=== PATIENT | female | born 1930 | race African-American/Black ===

== ENCOUNTER 2016-05-26 03:34 | Emergency (ER) | payer MEDICARE, MEDICAID ==
[~2016-05-26] VITALS: Ht 170.2 cm; Wt 77.1 kg
[~2016-05-26 03:34] MED LIST: UNOBMED
[2016-05-26 03:45] VITALS: BP 150/79
--- NOTE | 2016-05-26 04:01 | Emergency Room Report ---
History of Present Illness General Chief Complaint: Multiple Trauma/Fall Source: Patient, Family Member Present Illness HPI Patient had a fall this morning about one hour prior to arrival Patient's daughter is here states that patient was walking back from the restroom in the dark when she sustained a fall Sounds to be mechanical nature Patient had a hematoma to the top of the head Denies any chest pain or shortness of breath denies any focal weakness Denies any difficulty ambulating Pain to the scalp area was 3/10 Denies any visual changes denies any neck pain Denies any lightheadedness or syncopal episodes Allergies: Coded Allergies: No Known Allergies (Unverified , 06/30/14) Patient History Past Medical History: see triage record Pertinent Family History: none Reviewed Nursing Documentation: PMH: Agreed, PSxH: Agreed Nursing Documentation-PMH Hx Hypertension: Yes Hx Diabetes: Yes 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 - alzeihmers Review of Systems All Other Systems: negative except mentioned in HPI Physical Exam Vital Signs Date Time Temp Pulse Resp B/P Pulse Ox O2 Delivery O2 Flow Rate FiO2 05/26/16 03:38 98.1 70 16 154/77 100 Room Air Sp02 EP Interpretation: reviewed, normal General Appearance: well appearing, no apparent distress Head: other - 1 x 1 cm hematoma left parietal region Eyes: bilateral eye EOMI, bilateral eye PERRL ENT: hearing grossly normal, normal pharynx, TMs + canals normal, uvula midline Neck: full range of motion, supple, no meningismus, no bony tend Respiratory: lungs clear, normal breath sounds, no rhonchi, no respiratory distress, no retraction, no accessory muscle use Cardiovascular #1: normal peripheral pulses, regular rate, rhythm, no edema, no gallop, no JVD, no murmur Gastrointestinal: normal bowel sounds, non tender, soft, no mass, no organomegaly, non-distended, no guarding, no hernia, no pulsatile mass, no rebound Genitourinary: no CVA tenderness Musculoskeletal: normal inspection Neurologic: oriented x3, responsive, 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 as tested, motor strength/ tone normal, sensory intact Psychiatric: mood/affect normal Skin: warm/dry, palpation normal Lymphatic: normal inspection, no adenopathy Medical Decision Making Diagnostic Impression: Primary Impression: Head injury ER Course Patient presents with a sounds to be fairly mechanical nature fall However given her age baseline blood work was also obtained and CT head did not show any obvious acute disease Patient's blood work at baseline levels patient has rested comfortably and remains hemodynamically stable And the patient is able to have close outpatient followup Labs Test 05/26/16 04:20 White Blood Count 7.7 K/UL (4.8-10.8) Red Blood Count 4.00 M/UL (4.20-5.40) Hemoglobin 10.4 G/DL (12.0-16.0) Hematocrit 33.2 % (37.0-47.0) Mean Corpuscular Volume 83 FL (80-99) Mean Corpuscular Hemoglobin 25.9 PG (27.0-31.0) Mean Corpuscular Hemoglobin Concent 31.3 G/DL (32.0-36.0) Red Cell Distribution Width 15.3 % (11.6-14.8) Platelet Count 209 K/UL (150-450) Mean Platelet Volume 7.7 FL (6.5-10.1) Neutrophils (%) (Auto) 68.6 % (45.0-75.0) Lymphocytes (%) (Auto) 20.5 % (20.0-45.0) Monocytes (%) (Auto) 8.5 % (1.0-10.0) Eosinophils (%) (Auto) 1.8 % (0.0-3.0) Basophils (%) (Auto) 0.6 % (0.0-2.0) Sodium Level 141 mEQ/L (135-145) Potassium Level 4.5 mEQ/L (3.4-4.9) Chloride Level 102 mEQ/L (98-107) Carbon Dioxide Level 27 mEQ/L (20-30) Anion Gap 12 (5-15) Blood Urea Nitrogen 28 mg/dL (7-23) Creatinine 1.2 mg/dL (0.5-0.9) Estimat Glomerular Filtration Rate mL/min (>60) Glucose Level 178 mg/dL (74-106) Calcium Level 9.5 mg/dL (8.6-10.2) Rhythm Strip Diag. Results EP Interpretation: yes Rate: 65 Rhythm: NSR, no PVC's, no ectopy Chest X-Ray Diagnostic Results EP Interpretation: Yes Findings: no consolidation, no effusion, no pneumothorax, other - Nonspecific markings right lower lobe no obvious acute pathology Number of Views: 1 CT/MRI/US Diagnostic Results CT/MRI/US Diagnostic Results : Impression CT head: No acute disease Last Vital Signs Date Time Temp Pulse Resp B/P Pulse Ox O2 Delivery O2 Flow Rate FiO2 05/26/16 03:38 98.1 70 16 154/77 100 Room Air Status: improved Disposition: HOME, SELF-CARE Condition: Improved Referrals: [facility] (PCP) Additional Instructions: Patient is provided with the discharge instructions notified to follow up with primary doctor in the next 2-3 days otherwise return to the er with any worsening symptoms. VERA HODGES D.O. May 26, 2016 04:01
[2016-05-26 04:31] LABS: BASOPHILS % (AUTO) 0.6 % (0.0-2.0); EOSINOPHILS % (AUTO) 1.8 % (0.0-3.0); LYMPHOCYTES % (AUTO) 20.5 % (20.0-45.0); MEAN CORPUSCULAR HEMOGLOBIN 25.9 PG (27.0-31.0); MEAN CORPUSCULAR HGB CONC 31.3 G/DL (32.0-36.0); MEAN CORPUSCULAR VOLUME 83 FL (80-99); MEAN PLATELET VOLUME 7.7 FL (6.5-10.1); MONOCYTES % (AUTO) 8.5 % (1.0-10.0); NEUTROPHILS % (AUTO) 68.6 % (45.0-75.0); PLATELET COUNT 209 K/UL (150-450); RED CELL DISTRIBUTION WIDTH 15.3 % (11.6-14.8); WHITE BLOOD COUNT 7.7 K/UL (4.8-10.8)
[2016-05-26 04:46] LABS: ANION GAP 12 (5-15); CALCIUM 9.5 mg/dL (8.6-10.2); CARBON DIOXIDE 27 mEQ/L (20-30); CHLORIDE 102 mEQ/L (98-107); CREATININE 1.2 mg/dL (0.5-0.9); HEMOLYSIS 35; POTASSIUM 4.5 mEQ/L (3.4-4.9); SODIUM 141 mEQ/L (135-145)
[2016-05-26 05:10] VITALS: BP 146/80
--- NOTE | 2016-05-26 08:39 | Diagnostic Imaging Report ---
Indications: , Head trauma, pain Technique: Continuous helical CT imaging of the brain was performed with automatic exposure control on a Siemens sensation [address] scanner. Axial and coronal images were reconstructed at 5 mm slice thickness and interval. CTDI volume(s): 70 mGy Total DLP: 1551 mGy-cm Findings: Comparison: 06/30/2014 Motion artifact degrades images. 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 No evidence of mass or hemorrhage, other attenuation abnormality, mass effect, midline shift, hydrocephalus or increased intracranial pressure. Bone window images remain otherwise unremarkable. Visualized paranasal sinuses and mastoid air cells remain clear. IMPRESSION: No evidence of acute injury or other acute intracranial pathology, unchanged Stable chronic changes as described. This correlates with [employer] preliminary report. The CT scanner at [facility] is accredited by the [employer] and the scans are performed using protocols designed to limit radiation exposure to as low as reasonably achievable to attain images of sufficient resolution adequate for diagnostic evaluation.
--- NOTE | 2016-05-26 10:33 | Diagnostic Imaging Report ---
Indications: Chest pain Technique: Portable AP chest Findings: Comparison: 06/30/2014 Inspiratory effort has decreased. Bronchovascular markings have increased in both lung bases. Cardiac silhouette appears to have increased in size. Pulmonary vasculature within normal limits. No pleural abnormality. Aortic arch calcification, thoracic vertebral osteophytes again noted. IMPRESSION: Interval changes described most likely due to decreased inspiration. Upright PA and lateral chest radiographs with better inspiratory effort and optimal technique recommended for more complete evaluation. Stable chronic changes as described
--- NOTE | 2016-06-14 14:18 | Cardiology Report ---
APPROVED REPORT EKG Measurement Heart [id number] Normal sinus rhythm Voltage criteria for left ventricular hypertrophy Cannot rule out Septal infarct, age undetermined Abnormal ECG
== END 2016-05-26 05:10 | disposition home or self-care (01) ==
LOC: EMR 03:50
DX: S00.03XA Contusion of scalp, initial encounter (principal); W19.XXXA Unspecified fall, initial encounter; Y92.012 Bathroom of single-family (private) house as the place of occurrence of the external cause; I10 Essential (primary) hypertension; E11.9 Type 2 diabetes mellitus without complications; G30.9 Alzheimer's disease, unspecified; F02.80 Dementia in other diseases classified elsewhere, unspecified severity, without behavioral disturbance, psychotic disturbance, mood disturbance, and anxiety
CPT/HCPCS: 36415; 70450; 71010; 80048; 85025; 93005; 99284

== ENCOUNTER 2016-07-10 15:10 | Emergency (ER) | payer MEDICARE, MEDICAID ==
[~2016-07-10] VITALS: Ht 170.2 cm; Wt 77.1 kg
--- NOTE | 2016-07-10 15:56 | Emergency Room Report ---
History of Present Illness General Chief Complaint: General Complaint Source: Family Member (JET LANCASTER) Source: Patient, Family Member (VERA HODGES D.O.) Present Illness HPI Patient complains of general weakness for 2-1/2 days. Associated symptoms include decreased appetite, abdominal pain, fatigue, chest pain and shortness of breath, and increased sleepiness. No provoking relieving factors. Patient is poor historian. Patient is accompanied by daughter. (JET LANCASTER) HPI Please refer to the initial note for the initial history Patient was also seen and evaluated by myself And the care was taken over by myself Patient is here with family Essentially report general weakness, patient also complaining of left flank discomfort Family here denies any fall or syncope There was no obvious documented fever Patient initially appeared anxious on my evaluation However the family reports of the patient is afraid of people and likely having anxiety secondary to that He also reported the patient is due for her medications (VERA HODGES D.O.) Allergies: Coded Allergies: No Known Allergies (Unverified , 06/30/14) Patient History Now: No (JET LANCASTER) Past Medical History: see triage record Pertinent Family History: none Reviewed Nursing Documentation: PMH: Agreed, PSxH: Agreed (VERA HODGES D.O.) Nursing Documentation-PMH Past Medical History: No History, Except For Hx Hypertension: Yes Hx Diabetes: Yes Hx Cancer: Yes - left breast mastectomy Hx Gastrointestinal Problems: Yes - gerd Hx Neurological Problems: Yes - alzeihmrai (JET LANCASTER) Review of Systems All Other Systems: negative except mentioned in HPI (VERA HODGES D.O.) Physical Exam Vital Signs Date Time Temp Pulse Resp B/P Pulse Ox O2 Delivery O2 Flow Rate FiO2 07/10/16 15:23 98.8 88 16 129/57 100 Room Air (JET LANCASTER.ABeto) Pulse ox is 98% on room air which is interpreted as normal Sp02 EP Interpretation: reviewed, normal General Appearance: well appearing, no apparent distress Head: normocephalic, atraumatic Eyes: bilateral eye EOMI, bilateral eye PERRL ENT: normal pharynx, no angioedema Neck: full range of motion, supple Respiratory: lungs clear, normal breath sounds Cardiovascular #1: regular rate, rhythm Gastrointestinal: non tender, soft, no mass Genitourinary: no CVA tenderness Musculoskeletal: normal inspection Neurologic: alert, responsive Skin: no rash, other - Patient's left arm does appear edematous compared to the right Lymphatic: no adenopathy (VERA HODGES D.O.) Medical Decision Making PA Attestation Dr. Hodges is my supervising physician with whom patient management has been discussed with. (JET LANCASTER) Diagnostic Impression: Primary Impression: Pyelonephritis ER Course care of this patient was transferred to (JET LANCASTER) ER Course Given the patient's history examined the presentation multiple differentials are considered Initially on evaluation it was noted that the patient had increased edema of the left upper arm Therefore ultrasound was obtained However speaking to the patient's daughter she reports that her arm has been like that for several years and has had previous workup Patient's urine sample does show positive for bacteria the patient's white blood cell count and hemoglobin otherwise at baseline levels Chest x-ray was normal Patient continues to be hemodynamically stable I did have a discussion with family regarding further inpatient workup and antibiotic coverage Versus outpatient They feel that they would rather have the patient at home, I spoke to [facility] They also agree and are comfortable with this disposition Patient placed on oral antibiotics and will continue to have close outpatient followup Labs Test 07/10/16 17:13 07/10/16 18:00 White Blood Count 6.9 K/UL (4.8-10.8) Red Blood Count 4.00 M/UL (4.20-5.40) Hemoglobin 10.3 G/DL (12.0-16.0) Hematocrit 33.4 % (37.0-47.0) Mean Corpuscular Volume 84 FL (80-99) Mean Corpuscular Hemoglobin 25.8 PG (27.0-31.0) Mean Corpuscular Hemoglobin Concent 30.9 G/DL (32.0-36.0) Red Cell Distribution Width 15.4 % (11.6-14.8) Platelet Count 188 K/UL (150-450) Mean Platelet Volume 7.1 FL (6.5-10.1) Neutrophils (%) (Auto) 71.6 % (45.0-75.0) Lymphocytes (%) (Auto) 17.7 % (20.0-45.0) Monocytes (%) (Auto) 8.5 % (1.0-10.0) Eosinophils (%) (Auto) 1.7 % (0.0-3.0) Basophils (%) (Auto) 0.5 % (0.0-2.0) D-Dimer 2645 ng/mL (<500) Sodium Level 143 mEQ/L (135-145) Potassium Level 4.2 mEQ/L (3.4-4.9) Chloride Level 103 mEQ/L (98-107) Carbon Dioxide Level 27 mEQ/L (20-30) Anion Gap 13 (5-15) Blood Urea Nitrogen 22 mg/dL (7-23) Creatinine 1.3 mg/dL (0.5-0.9) Estimat Glomerular Filtration Rate mL/min (>60) Glucose Level 197 mg/dL (74-106) Calcium Level 9.2 mg/dL (8.6-10.2) Total Bilirubin 0.4 mg/dL (0.0-1.2) Aspartate Amino Transf (AST/SGOT) 14 U/L (5-40) Alanine Aminotransferase (ALT/SGPT) 13 U/L (3-33) Alkaline Phosphatase 134 U/L (35-104) Total Creatine Kinase 50 U/L (26-140) Creatine Kinase MB < 1.5 ng/mL (< 3.8) Creatine Kinase MB Relative Index Troponin I < 0.30 ng/mL (<=0.30) Total Protein 6.4 g/dL (6.6-8.7) Albumin 3.8 g/dL (3.5-5.2) Globulin 2.6 g/dL Albumin/Globulin Ratio 1.4 (1.0-2.7) Urine Color Mary Urine Appearance Slightly cloudy Urine pH 6 (4.5-8.0) Urine Specific [place] 1.015 (1.005-1.035) Urine Protein 2+ (NEGATIVE) Urine Glucose (UA) Negative (NEGATIVE) Urine Ketones 1+ (NEGATIVE) Urine Occult Blood Negative (NEGATIVE) Urine Nitrite Negative (NEGATIVE) Urine Bilirubin 1+ (NEGATIVE) Urine Ictotest Negative Urine Urobilinogen 4 MG/DL (0.0-1.0) Urine Leukocyte Esterase 3+ (NEGATIVE) Urine RBC 0-2 /HPF (0 - 2) Urine WBC 15-20 /HPF (0 - 2) Urine Squamous Epithelial Cells Moderate /LPF (NONE/OCC) Urine Bacteria Moderate /HPF (NONE) Urine Mucus Moderate /LPF (NONE/OCC) (VERA HODGES D.O.) EKG Diagnostic Results Rate: normal Rhythm: NSR ST Segments: other - LVH, nonspecific ST and T-wave changes (VERA HODGES D.O.) Rhythm Strip Diag. Results EP Interpretation: yes Rate: 66 Rhythm: NSR, no PVC's, no ectopy (VERA HODGES D.O.) Chest X-Ray Diagnostic Results EP Interpretation: Yes Findings: no consolidation, no effusion, no pneumothorax Number of Views: 1 (VERA HODGES D.O.) CT/MRI/US Diagnostic Results CT/MRI/US Diagnostic Results : Impression Left upper extremity ultrasound: Negative for DVT (VERA HODGES D.O.) Last Vital Signs Date Time Temp Pulse Resp B/P Pulse Ox O2 Delivery O2 Flow Rate FiO2 07/10/16 15:23 98.8 88 16 129/57 100 Room Air (JET LANCASTER) Status: improved (VERA HODGES D.O.) Condition: Improved Scripts Cephalexin* (KEFLEX*) 500 Mg Capsule 500 MG ORAL Q6H, #28 CAP 0 Refills Prov: VERA HODGES D.O. 07/10/16 Additional Instructions: Patient is provided with the discharge instructions notified to follow up with primary doctor in the next 2-3 days otherwise return to the er with any worsening symptoms. Please note that this report is being documented using [employer] technology. This can lead to erroneous entry secondary to incorrect interpretation by the dictating instrument. JET LANCASTER Jul 10, 2016 15:56 VERA HODGES D.O. Jul 10, 2016 19:32
[2016-07-10 16:16] VITALS: BP 132/61
[2016-07-10 17:26] LABS: BASOPHILS % (AUTO) 0.5 % (0.0-2.0); EOSINOPHILS % (AUTO) 1.7 % (0.0-3.0); LYMPHOCYTES % (AUTO) 17.7 % (20.0-45.0); MEAN CORPUSCULAR HEMOGLOBIN 25.8 PG (27.0-31.0); MEAN CORPUSCULAR HGB CONC 30.9 G/DL (32.0-36.0); MEAN CORPUSCULAR VOLUME 84 FL (80-99); MEAN PLATELET VOLUME 7.1 FL (6.5-10.1); MONOCYTES % (AUTO) 8.5 % (1.0-10.0); NEUTROPHILS % (AUTO) 71.6 % (45.0-75.0); PLATELET COUNT 188 K/UL (150-450); RED CELL DISTRIBUTION WIDTH 15.4 % (11.6-14.8); WHITE BLOOD COUNT 6.9 K/UL (4.8-10.8)
[2016-07-10 18:06] LABS: TROPONIN I < 0.30 ng/mL (<=0.30)
[2016-07-10 18:10] LABS: ALANINE AMINOTRANSFERASE 13 U/L (3-33); ALBUMIN/GLOBULIN RATIO 1.4 (1.0-2.7); ANION GAP 13 (5-15); ASPARTATE AMINO TRANSFERASE 14 U/L (5-40); CALCIUM 9.2 mg/dL (8.6-10.2); CARBON DIOXIDE 27 mEQ/L (20-30); CHLORIDE 103 mEQ/L (98-107); CREATININE 1.3 mg/dL (0.5-0.9); HEMOLYSIS 4; POTASSIUM 4.2 mEQ/L (3.4-4.9); SODIUM 143 mEQ/L (135-145); TOTAL PROTEIN 6.4 g/dL (6.6-8.7)
[2016-07-10 18:21] LABS: APPEARANCE,URINE SLIGHTLY CLOUDY; KETONES,URINE 1+ (NEGATIVE); LEUKOCYTE ESTERASE ,URINE 3+ (NEGATIVE); NITRITE,URINE NEGATIVE (NEGATIVE); PH,URINE 6 (4.5-8.0); PROTEIN,URINE 2+ (NEGATIVE); UROBILINOGEN,URINE 4 MG/DL (0.0-1.0)
[2016-07-10 18:22] LABS: CKMB < 1.5 ng/mL (< 3.8)
[2016-07-10 18:30] LABS: BACTERIA,URINE MODERATE /HPF; ICTOTEST NEGATIVE; MUCUS,URINE MODERATE /LPF (NONE/OCC); RBC,URINE 0-2 /HPF (0 - 2); SQUAMOUS EPITHELIAL CELL,UR MODERATE /LPF (NONE/OCC); WBC,URINE 15-20 /HPF (0 - 2)
[2016-07-10] MEDS ORDERED: cefTRIAXone 1 GM in NS 55 ML IVPB ONE (18:45)
[2016-07-10] MEDS ORDERED: KEFLEX500 MG ORAL (18:55)
[2016-07-10 19:13] VITALS: BP_SYST 128; BP_SYST 132; BP_DIAS 61; BP_DIAS 64
--- NOTE | 2016-07-11 10:36 | Diagnostic Imaging Report ---
Indication: PAIN Technique: One view of the chest Comparison: 05/26/2016 Findings: No acute infiltrates, effusions, or congestion. Tortuous calcified aorta. Normal heart size. Upper mediastinum unremarkable. Interim resolution of previously demonstrated bilateral basilar opacities. Patient's chin obscures the upper mediastinum Impression: No acute process.
--- NOTE | 2016-07-12 11:28 | Cardiology Report ---
APPROVED REPORT EKG Measurement Heart [id number] Normal sinus rhythm Voltage criteria for left ventricular hypertrophy Cannot rule out Septal infarct, age undetermined Abnormal ECG
--- NOTE | 2016-07-12 23:22 | Diagnostic Imaging Report ---
APPROVED REPORT CPT Code: 46401 Present Symptoms Upper Extremity Pain: Left Upper Extremity Edema: Left Comments: Technically difficult study due to swelling . UPPER EXTREMITY: Venous imaging reveals patency of the internal jugular, subclavian, axillary and brachial veins. The cephalic and basilic veins are also patent. Doppler indicates normal spontaneous flow within these venous segments.
== END 2016-07-10 19:23 | disposition home or self-care (01) ==
LOC: EMR 15:55
DX: N12 Tubulo-interstitial nephritis, not specified as acute or chronic (principal); I10 Essential (primary) hypertension; E11.9 Type 2 diabetes mellitus without complications; K21.9 Gastro-esophageal reflux disease without esophagitis; G30.9 Alzheimer's disease, unspecified; F02.80 Dementia in other diseases classified elsewhere, unspecified severity, without behavioral disturbance, psychotic disturbance, mood disturbance, and anxiety; Z85.3 Personal history of malignant neoplasm of breast; Z90.12 Acquired absence of left breast and nipple
CPT/HCPCS: 36415; 71010; 80053; 81003; 82550; 82553; 82962; 84484; 85025; 85379; 87086; 93005; 93971; 96374; 99284; J0696